=== PATIENT | female | born 2000 | race Caucasian/White ===

== ENCOUNTER 2020-06-11 21:59 | Emergency (ER) | payer OTHER ==
[~2020-06-11] VITALS: Ht 152.4 cm; Wt 88.9 kg
[2020-06-11 22:11] VITALS: Ht 152.4 cm; Wt 88.9 kg
[2020-06-11 23:29] LABS: BASOPHIL % 0.5 % (0-2); PLATELET COUNT 243 x10^3mcL (130-400); RED CELL DISTRIBUTION WIDTH 14.1 % (11.5-14.5)
[2020-06-12 01:13] VITALS: BP 106/65
== END 2020-06-12 01:10 | disposition home or self-care (01) ==
LOC: ED 21:59
PROVIDERS: Emergency Medicine
DX: O20.0 Threatened abortion (principal)
CPT/HCPCS: Q0092